=== PATIENT | female | born 1960 | race Two or more races ===

== ENCOUNTER 2022-06-01 08:38 | Emergency (ER) | payer OTHER ==
[2022-06-01 08:45] VITALS: BMI 24.3
[2022-06-01] MEDS ORDERED: METOCLOPRAMIDE HCL INJECTION 10 MG/2 ML VIAL IVPB ONE (09:43)
[2022-06-01] MEDS ORDERED: ACETAMINOPHEN 1000 MG/100 ML BAG IVPB ONE (09:43)
[2022-06-01] MEDS ORDERED: SODIUM CHLORIDE 0.9% 500 ML INFUS.BAG IV ONE (09:43)
[2022-06-01] MEDS ORDERED: METOCLOPRAMIDE HCL INJECTION 10 MG/2 ML VIAL ONE (09:56)
[2022-06-01] MEDS ORDERED: ACETAMINOPHEN INJECTION 100 ML IVPB ONE (09:56)
[2022-06-01] MEDS ORDERED: MECLIZINE HCL 25 MG TABLET (FP) PO ONE (09:59)
[2022-06-01] MEDS ORDERED: MECLIZINE HCL 25 MG TABLET (FP) ONE (10:17)
[2022-06-01 11:00] LABS: EOS % 0.6 % (0-4.5); HEMATOCRIT 36.4 % (32.4-45.2); HEMOGLOBIN 12.1 GM/dL (10.7-15.3); LYMPH % 27.7 % (8-40); MCHC 33.2 g/dl (32.0-36.0); MEAN CELL VOLUME 87.2 fl (80-96); MEAN PLT VOLUME 7.5 fl (7.5-11.1); MONO % 5.2 % (3.8-10.2); NEUT % 65.5 % (42.8-82.8); PLATELET COUNT 320 10^3/uL (134-434); RBC 4.17 M/mm3 (3.60-5.2); RDW 13.2 % (11.6-15.6); WHITE BLOOD COUNT 5.8 K/mm3 (4.0-10.0)
[2022-06-01 11:13] LABS: INR 1.09 (0.83-1.09); PROTHROMBIN TIME (PATIENT) 12.6 SEC (9.7-13.0)
[2022-06-01 11:15] LABS: ACTIVATED PTT 31.8 SECONDS (25.2-36.5)
[2022-06-01 11:21] LABS: PH,URINE 6.5 (5.0-8.0); URINE APPEARANCE CLEAR; URINE BILIRUBIN NEGATIVE (NEGATIVE); URINE COLOR YELLOW; URINE GLUCOSE (UA) NEGATIVE (NEGATIVE); URINE KETONE TRACE (NEGATIVE); URINE LEUK ESTERASE NEGATIVE (NEGATIVE); URINE NITRITE NEGATIVE (NEGATIVE); URINE PROTEIN NEGATIVE (NEGATIVE); URINE UROBILINOGEN 0.2 mg/dL (0.2-1.0)
[2022-06-01 11:22] LABS: ALBUMIN 4.2 g/dl (3.4-5.0); CALCIUM 9.6 mg/dL (8.5-10.1)
[2022-06-01 11:23] LABS: BLOOD UREA NITROGEN 9.1 mg/dL (7-18); MAGNESIUM 1.9 mg/dL (1.8-2.4)
[2022-06-01 11:26] LABS: CREATININE 0.5 mg/dL (0.55-1.3)
[2022-06-01 11:27] LABS: TOT PROT 7.9 g/dl (6.4-8.2)
[2022-06-01 13:04] VITALS: BP 148/74; PULSE 90; RESP 16; TEMP 98.1
== END 2022-06-01 13:07 | disposition home or self-care (01) ==
LOC: JER 08:38
PROC: 3E033GC Introduction of Other Therapeutic Substance into Peripheral Vein, Percutaneous Approach (ICD-10-PCS; principal; 2022-06-01)
DX: R51.9 Headache, unspecified (principal)
CPT/HCPCS: 0241U-QW; 36415; 70450-TC; 71045-TC-FY; 80053; 81003; 82962; 83690; 83735; 84484; 85025; 85610; 85730; 87086; 93005; 93010; 96374; 96375; 99285-25

== ENCOUNTER 2022-06-30 09:23 | Emergency (ER) | payer OTHER ==
[2022-06-30 09:34] VITALS: RESP 18; TEMP 98.8; BMI 25.4
[2022-06-30] MEDS ORDERED: ACETAMINOPHEN 1000 MG/100 ML BAG IVPB ONE (10:12)
[2022-06-30] MEDS ORDERED: ACETAMINOPHEN INJECTION 100 ML IVPB ONE (10:23)
[2022-06-30 11:28] LABS: URINE APPEARANCE CLEAR; URINE BILIRUBIN NEGATIVE (NEGATIVE); URINE COLOR YELLOW; URINE GLUCOSE (UA) NEGATIVE (NEGATIVE); URINE KETONE NEGATIVE (NEGATIVE); URINE LEUK ESTERASE NEGATIVE (NEGATIVE); URINE NITRITE NEGATIVE (NEGATIVE); URINE PROTEIN NEGATIVE (NEGATIVE); URINE UROBILINOGEN 0.2 mg/dL (0.2-1.0)
[2022-06-30 11:29] LABS: BASO % 0.9 % (0-2.0); HEMATOCRIT 35.4 % (32.4-45.2); HEMOGLOBIN 11.7 GM/dL (10.7-15.3); LYMPH % 28.2 % (8-40); MCH 29.1 pg (25.7-33.7); MCHC 32.9 g/dl (32.0-36.0); MEAN CELL VOLUME 88.2 fl (80-96); MEAN PLT VOLUME 8.5 fl (7.5-11.1); MONO % 5.6 % (3.8-10.2); NEUT % 64.3 % (42.8-82.8); PLATELET COUNT 270 10^3/uL (134-434); RBC 4.01 M/mm3 (3.60-5.2); RDW 13.4 % (11.6-15.6); WHITE BLOOD COUNT 5.5 K/mm3 (4.0-10.0)
[2022-06-30 11:53] LABS: ALBUMIN 3.9 g/dl (3.4-5.0); BLOOD UREA NITROGEN 11.4 mg/dL (7-18)
[2022-06-30 11:55] LABS: CREATININE 0.5 mg/dL (0.55-1.3)
[2022-06-30 11:57] LABS: BILIRUBIN,TOTAL 1.1 mg/dL (0.2-1); TOT PROT 7.4 g/dl (6.4-8.2)
[2022-06-30 14:38] VITALS: BP 152/73; PULSE 77
== END 2022-06-30 14:47 | disposition home or self-care (01) ==
LOC: JER 09:23
PROC: 3E033GC Introduction of Other Therapeutic Substance into Peripheral Vein, Percutaneous Approach (ICD-10-PCS; principal; 2022-06-30)
DX: R10.31 Right lower quadrant pain (principal)
CPT/HCPCS: 36415; 74177-TC; 80053; 81003; 82962; 83690; 85025; 87086; 93005; 93010; 96374; 99285-25

== ENCOUNTER 2022-09-04 05:09 | Day surgery (SDC) | payer OTHER ==
[2022-09-04 08:35] VITALS: BMI 27.3
[2022-09-04 10:27] VITALS: TEMP 98.6
[2022-09-04 11:18] VITALS: RESP 18
[2022-09-04 11:19] VITALS: BP 151/68; PULSE 55
== END 2022-09-04 11:50 | disposition home or self-care (01) ==
LOC: JASU-ENDO 05:09
PROVIDERS: ATTEND Student in an Organized Health Care Education/Training Program
PROC: 0DBP8ZX Excision of Rectum, Via Natural or Artificial Opening Endoscopic, Diagnostic (ICD-10-PCS; principal; 2022-09-04 09:30)
DX: K57.90 Diverticulosis of intestine, part unspecified, without perforation or abscess without bleeding (principal); K62.1 Rectal polyp; K63.89 Other specified diseases of intestine
CPT/HCPCS: 88305-TC

== ENCOUNTER 2022-10-13 22:07 | Emergency (ER) | payer OTHER ==
[2022-10-13 22:16] VITALS: BMI 23.0
[2022-10-13] MEDS ORDERED: ACETAMINOPHEN 325 MG TABLET (FP) PO ONE (22:49)
[2022-10-13] MEDS ORDERED: ACETAMINOPHEN 325 MG TABLET (FP) ONE (23:14)
[2022-10-14 00:54] VITALS: RESP 18
[2022-10-14 01:04] VITALS: BP 131/55; PULSE 72; TEMP 98.7
== END 2022-10-14 02:22 | disposition home or self-care (01) ==
LOC: JER 22:07
DX: S49.91XA Unspecified injury of right shoulder and upper arm, initial encounter (principal); S69.91XA Unspecified injury of right wrist, hand and finger(s), initial encounter; Y04.2XXA Assault by strike against or bumped into by another person, initial encounter
CPT/HCPCS: 73030-TC-RT-FY; 73110-TC-RT-FY; 73130-TC-RT-FY; 99283-25

== ENCOUNTER 2023-09-04 09:01 | Day surgery (SDC) | payer OTHER ==
[2023-08-30 12:43] VITALS: BMI 22.2
[2023-09-04] MEDS ORDERED: MIDAZOLAM HCL 2 MG/2 ML SINGLE DOSE VIAL ONE (09:27)
[2023-09-04] MEDS ORDERED: LIDOCAINE 1% P/F 10 MG/ML VIAL ONE (09:53)
[2023-09-04] MEDS ORDERED: CARBACHOL 0.01% INTRA-OCULAR 1.5 ML VIAL ONE (09:53)
[2023-09-04] MEDS ORDERED: TETRACAINE 0.5% OPHTH SOLN 2 ML BOTTLE ONE (09:53)
[2023-09-04] MEDS ORDERED: BSS (NA/CA/MG/K) BALANCED SALT SOLUTION OPHTH SOLN 15 ML BOTTLE ONE (09:53)
[2023-09-04] MEDS ORDERED: NEO/POLYMYX B SULF/DEXAMETH OPHTHALMIC 5ML BOTTLE ONE (09:53)
[2023-09-04 10:03] VITALS: RESP 16
[2023-09-04] MEDS: CIPROFLOXACIN 0.3% EYE DROPS 5 ML BOTTLE ONE (10:10)
[2023-09-04] MEDS: TROPICAMIDE 1% OPHTH SOLN 15 ML BOTTLE ONE (10:10)
[2023-09-04] MEDS: CYCLOPENTOLATE 2% OPHTH SOLN 2 ML BOTTLE ONE (10:10)
[2023-09-04] MEDS: PHENYLEPHRINE 2.5% OPTHALMIC DROP 2ML BOTTLE ONE (10:10)
[2023-09-04 12:03] VITALS: TEMP 97.4
[2023-09-04 12:13] VITALS: BP 112/57; PULSE 60
== END 2023-09-04 12:18 | disposition home or self-care (01) ==
LOC: FASU 09:01
PROVIDERS: ATTEND Ophthalmology
PROC: 08RJ3JZ Replacement of Right Lens with Synthetic Substitute, Percutaneous Approach (ICD-10-PCS; principal; 2023-09-04 11:27)
DX: H26.8 Other specified cataract (principal)
CPT/HCPCS: 66984; V2632; 82962

== ENCOUNTER 2023-10-02 09:17 | Day surgery (SDC) | payer OTHER ==
[2023-09-26 17:28] VITALS: BMI 21.5
[2023-10-02] MEDS: CIPROFLOXACIN 0.3% EYE DROPS 5 ML BOTTLE ONE (09:45)
[2023-10-02] MEDS: PHENYLEPHRINE 2.5% OPTHALMIC DROP 2ML BOTTLE ONE (09:45)
[2023-10-02] MEDS: CYCLOPENTOLATE 2% OPHTH SOLN 2 ML BOTTLE ONE (09:45)
[2023-10-02] MEDS: TROPICAMIDE 1% OPHTH SOLN 15 ML BOTTLE ONE (09:45)
[2023-10-02 09:58] VITALS: RESP 16
[2023-10-02] MEDS ORDERED: LIDOCAINE 1% P/F 10 MG/ML VIAL ONE (10:28)
[2023-10-02] MEDS ORDERED: CARBACHOL 0.01% INTRA-OCULAR 1.5 ML VIAL ONE (10:29)
[2023-10-02] MEDS ORDERED: NEO/POLYMYX B SULF/DEXAMETH OPHTHALMIC 5ML BOTTLE ONE (10:29)
[2023-10-02] MEDS ORDERED: BSS (NA/CA/MG/K) BALANCED SALT SOLUTION OPHTH SOLN 15 ML BOTTLE ONE (10:29)
[2023-10-02] MEDS ORDERED: TETRACAINE 0.5% OPHTH SOLN 2 ML BOTTLE ONE (10:29)
[2023-10-02] MEDS ORDERED: MIDAZOLAM HCL 2 MG/2 ML SINGLE DOSE VIAL ONE (11:17)
[2023-10-02 11:58] VITALS: TEMP 97.2
[2023-10-02 12:50] VITALS: BP 122/64; PULSE 66
== END 2023-10-02 12:25 | disposition home or self-care (01) ==
LOC: FASU 09:17
PROVIDERS: ATTEND Ophthalmology
PROC: 08RK3JZ Replacement of Left Lens with Synthetic Substitute, Percutaneous Approach (ICD-10-PCS; principal; 2023-10-02 11:21)
DX: H26.8 Other specified cataract (principal)
CPT/HCPCS: 66984; V2632; 82962